=== PATIENT | female | born 1975 | race American Indian/Alaskan Native ===

== ENCOUNTER 2017-01-30 22:13 | Emergency (ER) | payer SELFPAY ==
[2017-01-30 23:18] LABS: Basophils % (Auto) 0.8 % (0.0-1.8); Eosinophils % (Auto) 8.3 % (0.0-4.3); Hematocrit 25.4 % (30.3-42.9); Hemoglobin 7.6 gm/dl (10.1-14.3); Mean Corpuscular HGB Conc 30 % (30-34); Platelet Count 267 K/mm3 (140-440); White Blood Count 4.6 K/mm3 (4.5-11.0)
[2017-01-30 23:20] LABS: Mean Corpuscular Hemoglobin 21 pg (28-32); Mean Corpuscular Volume 69 fl (79-97); Red Cell Distribution Width 20.5 % (13.2-15.2)
[2017-01-31 01:32] LABS: Bacteria,Urine 1+ /HPF (Negative); Bilirubin,Urine NEG (Negative); Blood,Urine LG (Negative); Ketones,Urine NEG (Negative); Leukocyte Esterase,Urine TR (Negative); Mucus,Urine FEW /HPF; Nitrite,Urine NEG (Negative); Protein,Urine <15 mg/dL mg/dL (Negative); Urobilinogen,Urine < 2.0 mg/dL (<2.0)
[2017-01-31 01:37] LABS: RBC,Urine > 182.0 /HPF (0.0-6.0)
--- NOTE | 2017-01-31 03:31 | Emergency Department Report ---
ED Female HPI - General Chief complaint: Vaginal Bleeding Stated complaint: POSS MISCARRIAGE Time Seen by Provider: 01/31/17 02:37 Source: patient, RN notes reviewed Mode of arrival: Ambulatory Limitations: No Limitations - History of Present Illness Initial comments: This is a 41-year-old female. She is previously unknown to me. She does not have a local primary care doctor. She does not have a local [facility] doctor. She had a gastric bypass done locally. She can't recall the name of her bariatric surgeon. The patient presents to the ER with complaint of vaginal bleeding and passing of clots. There is no headache or neck pain. There is no chest pain or shortness of breath. There is no severe abdominal pain. No irritative or obstructive urinary symptoms. The patient reports that she is not taking her multivitamins. She denies hematemesis and bright red blood per rectum. She denies dizziness, lightheadedness, chest pain and shortness of breath. MD Complaint: vaginal bleeding -: Gradual Consistency: intermittent Improves with: none Worsens with: none Are you Now?: No Associated Symptoms: vaginal bleeding - Related Data Sexually active: Yes Home Medications Medication Instructions Recorded Confirmed Last Taken Cyclobenzaprine [Flexeril] 01/13/14 01/13/14 Unknown Gabapentin [Neurontin] 400 mg PO Q8H 01/13/14 01/13/14 Unknown traMADol [Ultram 50 MG tab] 01/13/14 01/13/14 01/13/14 15:00 traZODone [Desyrel] 01/13/14 01/13/14 01/12/14 22:00 Previous Rx's Medication Instructions Recorded Last Taken Type Cephalexin [Keflex] 500 mg PO TID #21 capsule 01/13/14 Unknown Rx Calcium Citrate/Vitamin D3 1 each PO QDAY #30 tablet 01/31/17 Unknown Rx [Calcium Citrate +Vit D3 Tablet] Cyanocobalamin (Vitamin B-12) 500 mcg SL QDAY #30 tab.subl 01/31/17 Unknown Rx [Vitamin B-12] Ferrous Sulfate [Feosol 325 MG tab] 325 mg PO TID #90 tablet 01/31/17 Unknown Rx Multivitamin Tab [Multiple Vitamin 2 each PO ONCE #60 tablet 01/31/17 Unknown Rx TAB (Theragran)] Allergies Allergy/AdvReac Type Severity Reaction Status Date / Time NSAIDS (Non-Steroidal Allergy Hives Verified 03/08/14 11:35 Anti-Inflamma Sulfa (Sulfonamide Allergy Hives Verified 03/08/14 11:35 Antibiotics) sumatriptan [From Imitrex] Allergy Hives Verified 03/08/14 11:35 sumatriptan succinate Allergy Hives Verified 03/08/14 11:35 [From Imitrex] ED Review of Systems ROS: Stated complaint: POSS MISCARRIAGE Other details as noted in HPI Constitutional: denies: fever Eyes: denies: vision change ENT: denies: epistaxis Respiratory: denies: cough Cardiovascular: denies: chest pain Gastrointestinal: denies: abdominal pain Genitourinary: abnormal menses Musculoskeletal: denies: back pain Skin: denies: lesions Neurological: denies: weakness ED Past Medical Hx - Past Medical History Previous Medical History?: Yes Additional medical history: herpes - Surgical History Past Surgical History?: Yes Additional Surgical History: c sect x 3, gastric Bypass - Social History Smoking Status: Never Smoker Substance Use Type: None - Medications Home Medications: Home Medications Medication Instructions Recorded Confirmed Last Taken Type Cephalexin [Keflex] 500 mg PO TID #21 capsule 01/13/14 Unknown Rx Cyclobenzaprine [Flexeril] 01/13/14 01/13/14 Unknown History Gabapentin [Neurontin] 400 mg PO Q8H 01/13/14 01/13/14 Unknown History traMADol [Ultram 50 MG tab] 01/13/14 01/13/14 01/13/14 15:00 History traZODone [Desyrel] 01/13/14 01/13/14 01/12/14 22:00 History Calcium Citrate/Vitamin D3 1 each PO QDAY #30 tablet 01/31/17 Unknown Rx [Calcium Citrate +Vit D3 Tablet] Cyanocobalamin (Vitamin B-12) 500 mcg SL QDAY #30 tab.subl 01/31/17 Unknown Rx [Vitamin B-12] Ferrous Sulfate [Feosol 325 MG tab] 325 mg PO TID #90 tablet 01/31/17 Unknown Rx Multivitamin Tab [Multiple Vitamin 2 each PO ONCE #60 tablet 01/31/17 Unknown Rx TAB (Theragran)] ED Physical Exam - General Limitations: No Limitations General appearance: alert, in no apparent distress - Head Head exam: Present: atraumatic, normocephalic - Eye Eye exam: Present: normal appearance, EOMI. Absent: nystagmus - ENT ENT exam: Present: normal exam, normal orophraynx, mucous membranes moist, normal external ear exam - Neck Neck exam: Present: normal inspection, full ROM. Absent: tenderness, meningismus - Respiratory Respiratory exam: Present: normal lung sounds bilaterally. Absent: respiratory distress, wheezes, rales, rhonchi, stridor, chest wall tenderness, accessory muscle use, decreased breath sounds, prolonged expiratory - Cardiovascular Cardiovascular Exam: Present: regular rate, normal rhythm, normal heart sounds. Absent: bradycardia, tachycardia, irregular rhythm, systolic murmur, diastolic murmur, rubs, gallop - GI/Abdominal GI/Abdominal exam: Present: soft, normal bowel sounds. Absent: distended, tenderness, guarding, rebound, rigid, pulsatile mass - External exam: Present: normal external exam Speculum exam: Present: normal speculum exam, vaginal bleeding Bi-manual exam: Present: normal bi-manual exam, other (escorted by Huyen Bae). Absent: cervical motion tendernes, adnexal tenderness, adnexal mass - Extremities Exam Extremities exam: Present: normal inspection, full ROM, normal capillary refill. Absent: tenderness, pedal edema, joint swelling, calf tenderness - Back Exam Back exam: Present: normal inspection, full ROM. Absent: tenderness, CVA tenderness (R), CVA tenderness (L), muscle spasm, paraspinal tenderness, vertebral tenderness - Neurological Exam Neurological exam: Present: alert, oriented X3, normal gait, other (Extraocular movements intact. Tongue midline. No facial droop. Facial sensation intact to light touch in the V1, V2, V3 distribution bilaterally. 5 and 5 strength in 4 extremities.. Sensation is intact to light touch in 4 extremities.). Absent : motor sensory deficit - Psychiatric Psychiatric exam: Present: normal affect, normal mood - Skin Skin exam: Present: warm, dry, intact, normal color. Absent: rash ED Course Vital Signs 01/30/17 01/31/17 22:40 02:15 Temperature 98.6 F 98.4 F Pulse Rate 70 63 Respiratory 18 18 Rate Blood Pressure 152/84 Blood Pressure 113/56 [Right] O2 Sat by Pulse 100 100 Oximetry ED Medical Decision Making - Lab Data Result diagrams: 01/30/17 22:58 Vital Signs 01/30/17 01/31/17 22:40 02:15 Temperature 98.6 F 98.4 F Pulse Rate 70 63 Respiratory 18 18 Rate Blood Pressure 152/84 Blood Pressure 113/56 [Right] O2 Sat by Pulse 100 100 Oximetry Lab Results 01/30/17 01/30/17 01/30/17 Range/Units 22:58 22:58 22:58 WBC 4.6 (4.5-11.0) K/mm3 RBC 3.70 (3.65-5.03) M/mm3 Hgb 7.6 L (10.1-14.3) gm/dl Hct 25.4 L (30.3-42.9) % MCV 69 L (79-97) fl MCH 21 L (28-32) pg MCHC 30 (30-34) % RDW 20.5 H (13.2-15.2) % Plt Count 267 (140-440) K/mm3 Lymph % (Auto) 47.1 H (13.4-35.0) % [place] % (Auto) 7.8 H (0.0-7.3) % Eos % (Auto) 8.3 H (0.0-4.3) % Baso % (Auto) 0.8 (0.0-1.8) % Lymph # 2.2 (1.2-5.4) K/mm3 [place] # 0.4 (0.0-0.8) K/mm3 Eos # 0.4 (0.0-0.4) K/mm3 Baso # 0.0 (0.0-0.1) K/mm3 Seg Neutrophils % 36.0 L (40.0-70.0) % Seg Neutrophils # 1.7 L (1.8-7.7) K/mm3 HCG, Quant < 2 (0-4) mIU/mL Urine Color (Yellow) Urine Turbidity (Clear) Urine pH (5.0-7.0) Ur Specific Elmo (1.003-1.030) Urine Protein (Negative) mg/dL Urine Glucose (UA) (Negative) mg/dL Urine Ketones (Negative) mg/dL Urine Blood (Negative) Urine Nitrite (Negative) Urine Bilirubin (Negative) Urine Urobilinogen (<2.0) mg/dL Ur Leukocyte Esterase (Negative) Urine WBC (Auto) (0.0-6.0) /HPF Urine RBC (Auto) (0.0-6.0) /HPF U Epithel Cells (Auto) (0-13.0) /HPF Urine Bacteria (Auto) (Negative) /HPF Urine Mucus /HPF Blood Type A NEGATIVE Antibody Screen TNR JACQUELYN Antibody Screen Negative 01/30/17 Range/Units 23:57 WBC (4.5-11.0) K/mm3 RBC (3.65-5.03) M/mm3 Hgb (10.1-14.3) gm/dl Hct (30.3-42.9) % MCV (79-97) fl MCH (28-32) pg MCHC (30-34) % RDW (13.2-15.2) % Plt Count (140-440) K/mm3 Lymph % (Auto) (13.4-35.0) % [place] % (Auto) (0.0-7.3) % Eos % (Auto) (0.0-4.3) % Baso % (Auto) (0.0-1.8) % Lymph # (1.2-5.4) K/mm3 [place] # (0.0-0.8) K/mm3 Eos # (0.0-0.4) K/mm3 Baso # (0.0-0.1) K/mm3 Seg Neutrophils % (40.0-70.0) % Seg Neutrophils # (1.8-7.7) K/mm3 HCG, Quant (0-4) mIU/mL Urine Color Yellow (Yellow) Urine Turbidity Clear (Clear) Urine pH 6.0 (5.0-7.0) Ur Specific Elmo 1.006 (1.003-1.030) Urine Protein <15 mg/dl (Negative) mg/dL Urine Glucose (UA) Neg (Negative) mg/dL Urine Ketones Neg (Negative) mg/dL Urine Blood Lg (Negative) Urine Nitrite Neg (Negative) Urine Bilirubin Neg (Negative) Urine Urobilinogen < 2.0 (<2.0) mg/dL Ur Leukocyte Esterase Tr (Negative) Urine WBC (Auto) 8.0 H (0.0-6.0) /HPF Urine RBC (Auto) > 182.0 (0.0-6.0) /HPF U Epithel Cells (Auto) 1.0 (0-13.0) /HPF Urine Bacteria (Auto) 1+ (Negative) /HPF Urine Mucus Few /HPF Blood Type Antibody Screen JACQUELYN Antibody Screen - Medical Decision Making Differential diagnosis: Menopausal, dysfunctional uterine bleeding, , chronic microcytic anemia, asymptomatic Assessment and plan: 41-year-old female with essentially painless vaginal bleeding. She is afebrile with unremarkable vital signs. She is found to have an asymptomatic microcytic anemia, most likely suggestive of iron deficiency anemia. Her urinalysis is not consistent with UTI, and she is not . I don't believe she requires advanced imaging at this time. She will be started on iron supplementation, given her history of gastric bypass, we will initiate other multivitamin supplementation. She'll be instructed to follow-up with an outpatient primary care doctor/[facility] doctor. Extensive discussion had with the patient regarding return precautions. She has been observed in the ER for a prolonged care time without clinical decompensation. The patient was instructed that the iron supplementation may change the color of her stools are black. She will be discharged at this time. Critical care attestation.: If time is entered above; I have spent that time in minutes in the direct care of this critically ill patient, excluding procedure time. ED Disposition Clinical Impression: Anemia, Vaginal bleeding Disposition: DISCHARGED TO HOME OR SELFCARE Is pt being admited?: No Does the pt Need Aspirin: No Condition: Stable Instructions: Iron Rich Diet (ED), Iron Deficiency Anemia (ED), Anemia (ED) Additional Instructions: Take the iron supplementation, multivitamins as directed. Follow up with an OB/ [facility] doctor within the next 2-3 weeks. Cultures were sent today, results will be available in the next 3-5 days. Have a primary care doctor or [facility] doctor contact the medical records department to obtain culture results. Return to the ER right away with new pain, worsened pain, migration of pain, dizziness, lightheadedness, chest pain, shortness of breath, confusion, nausea or vomiting , inability to tolerate liquid feeds. Please note that the iron supplementation will change the color of your bowel movements to black. Prescriptions: Calcium Citrate/Vitamin D3 [Calcium Citrate +Vit D3 Tablet] 1 each PO QDAY #30 tablet Cyanocobalamin (Vitamin B-12) [Vitamin B-12] 500 mcg SL QDAY #30 tab.subl Ferrous Sulfate [Feosol 325 MG tab] 325 mg PO TID #90 tablet Multivitamin Tab [Multiple Vitamin TAB (Theragran)] 2 each PO ONCE #60 tablet Referrals: PRIMARY CARE, [Primary Care Provider] - 3-5 Days [facility] [Provider Group] - 3-5 Days [facility] [Provider Group] - 3-5 Days [facility] [Provider Group] - 3-5 Days
[2017-01-31 05:00] VITALS: BP 107/66
== END 2017-01-31 04:37 | disposition home or self-care (01) ==
LOC: ED 22:13
DX: N93.9 Abnormal uterine and vaginal bleeding, unspecified (principal); D64.9 Anemia, unspecified; Z88.2 Allergy status to sulfonamides; Z88.6 Allergy status to analgesic agent; Z88.8 Allergy status to other drugs, medicaments and biological substances
CPT/HCPCS: 36415; 81001; 84702; 85025; 86850; 86900; 86901; 87210; 87591; 99284